=== PATIENT | male | born 1970 | race Caucasian/White ===

== ENCOUNTER 2024-02-27 07:51 | Outpatient (CLI) | payer BC, SELFPAY ==
--- NOTE | 2024-03-14 21:34 | WPDSLEEPSTUD ---
Sleep Study Date of Study: 02/27/24 Ordering Provider: Lake Fair MD Interpreting Physician: Christina Bliss MD Sleep Study Type: Split Polysomnogram Height: 1.78 m Weight: 108.862 kg Body Mass Index: 34.4 Neck Circumference (inches): 18 [place]: 1 Reason for Sleep Study Erythrocytosis, H/H elevated 19.1/56.6, testing to determine if sleep apnea is contributing Sleep History Deon Alvarez is a 53-year-old man with hypertension, hyperlipidemia, seasonal allergies and pre-diabetes developed increased hemoglobin and hematocrit. He does not awaken at night with shortness of breath or with heartburn symptoms. He occasionally snores, rarely snores loudly enough that others complain. He rarely has difficulty sleeping when he has a cold. He does not wake up gasping for breath during the night, does not have breathing problems at night reported to him by others. He does not sweat excessively at night or notice his heart pounding or beating irregularly at night. He does not fall asleep during the day, does not fall asleep involuntarily or while driving. He does not have loss of muscle tone with strong emotion. He does not have daytime difficulties due to excessive sleepiness. He is a software qa system specialist. He does not feel paralyzed on waking or falling asleep. He does not have vivid dreamlike scenes upon awakening or falling asleep. He does not feel afraid to go to sleep. He does not have nightmares. He does not have dream recall. He denies racing thoughts. He does not feel sad or depressed. He occasionally feels anxious. He rarely notices parts of his body jerking, rarely kicks at night. He he does not have crawling or aching feelings in his legs. He does not have leg pain at night. He does not have morning jaw pain nor does he grind his teeth at night. He is not bothered by pain during the day, is not awakened by pain at night. He does not wake up feeling stiff in the morning with sore achy muscles. He does not wake up with pain in the neck and spine. Normal bedtime is 9:30 p.m., falling asleep within 30 minutes after reading. He wakes once at most to go to the bathroom. He is able to return to sleep within 5 minutes. His normal wake up time is 6:00 a.m.. On weekends, bedtime is 10:00 p.m. and his wake time is 7:00 a.m.. He estimates getting between 7 and 8 hours of sleep at night. He does not take naps. He feels adequate upon awakening, feels better tn the afternoons and evenings compared to mornings. Habits: Tobacco: never smoker Caffeine: 1 can per day Alcohol: none Recreational substances: none [facility] Past Medical History Medical History Adult BMI 37.0-37.9 kg/sq m Benign essential hypertension BMI 34.0-34.9,adult BMI 35.0-35.9,adult BMI 36.0-36.9,adult BMI 38.0-38.9,adult Elevated homocysteine Encounter for preventive health examination Encounter for routine adult health examination with abnormal findings Encounter for routine adult health examination without abnormal findings Encounter to establish care Epidermal inclusion cyst Follow up Hyperlipidemia On terminal operations supervisor drug therapy Other abnormal glucose Pre-diabetes Prostate cancer screening Seasonal allergies Subcutaneous mass Testosterone deficiency Family History Family History Grandparent Hypertension Family history of lung cancer Family history of coronary artery disease Father Family history of Parkinson's disease Hypertension Mother Patient's mother is in good health Sibling Alive and well Social History Social History Smoking status: Never smoker Second hand tobacco smoke exposure: No Alcohol intake: never Lack of Transportation: No Lack of Food: Never True Current Housing: I Have Housing Concerned About Future Housing: No
[2024-03-14 21:42] VITALS: BMI 34.4
== END 2024-02-28 07:16 | disposition home or self-care (01) ==
LOC: ANHCSM 07:53
PROVIDERS: PCP Internal Medicine; Visit Provider Internal Medicine
DX: G47.33 Obstructive sleep apnea (adult) (pediatric) (principal); I10 Essential (primary) hypertension
CPT/HCPCS: 95811

== ENCOUNTER 2024-10-13 15:31 | Outpatient (CLI) | payer BC, SELFPAY ==
--- NOTE | ~2024-10-13 | CT_ITS ---
CT Scan of the Chest without Contrast: Clinical Indication: Pulmonary nodule Technique: Contiguous sections were acquired throughout the chest without intravenous contrast. Dose reduction technique was used on this scan by utilizing automated exposure control and iterative recon struction technique. The dose-length product (DLP) was 411.00 mGy-cm. Findings: There is no evidence of any significant mediastinal, hilar or axillary lymphadenopathy. The mediastin al soft tissues appear normal. There is no evidence of pleural or pericardial effusion. The lungs are clear. No pulmonary nodules or infiltrates are noted. Images through the upper abdomen reveal small calcified gallstone. Impression: Clear lungs. Cholelithiasis. Reviewed, dictated and finalized at location . Impression: Clear lungs. Cholelithiasis.
--- OUTSIDE RECORDS SUMMARY | 2024-10-13 17:40 | XMS_ITS | Continuity of Care Document ---
Author Organization [facility] Address [address] [place] [address] [place] [address] Phone Care Team Providers Care Pattern And Chain Maker Name Role Phone Bird OD, Marcelino Unavailable Unavailable Procedures Procedure Date Eye Exam & Treatment Refraction Eye Exam & Treatment Refraction Advance Directives Directive Yes / No Effective Date File Name No Information Encounters Encounter Description Practice Location Reason(s) For Visit Diagnoses Date Provider Providers Copied on Encounter [facility], [address] [place] [address] [address], [place], [place], [id number], tel:[phone] [facility] No Information 5-201 0 Bird OD Marcelino. [address], [place], [place], [facility], . tel:[phone] [facility], [address] [place] [address] [address], [place], [place], [id number], tel:[phone] [facility] No Information 3-200 7 Wright Chasity. [address], [place], [place], [facility], . tel:[phone] Family History Family Member Type Diagnosis Age At Onset No Information Payers Payer name Insurance type Covered democrat ID Authoriza tion(s) [facility] [id number] Social History Type Description Quantity Date Captured [...]
--- OUTSIDE RECORDS SUMMARY | 2024-10-13 17:40 | XMS_ITS | Clinical Summary ---
Author Organization [facility] Address [address] [place] [address] Care Team Providers Care Document Coordinator Name Role Phone Lake Fair MD Primary Care Provider [phone] Source Comments [facility],non-owned Affiliates and Associated Physician Practices is amultiple site organization consisting of ambulatory clinics and hospital sitesin [place], [place], [place] and [place]. This disclosure is being madepursuant to the Care Everywhere program and may not contain all information available regarding this patient. Last updated 18.[facility] [employer] Allergies No known active allergies Immunizations Immunization Administration Dates Next Due INFLUENZA VACCINE, QUADR. 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 Gender Identity Not on file Sexual Orientation Not on file Plan of Treatment Health Maintenance Due Date Last Done Comments COLOGUARD (AGES 45-75) - COL ON CA SCREENING 1972 COLON MONITORING 1972 COLONOSCOPY - COLON CA SCREENING 1972 CT COLONOGRAPHY - COLON CA SCREENING 1972 Colorectal Cancer Screening 1972 FIT - COLON CA SCREENING 1972 FLEX SIG - COLON CA SCREENING 1972 LIPID TESTING 1972 HIV SCREENING 1987 HEPATITIS C SCREENING 07/04/1990 DTAP/TDAP/TD VACCINES (1 - Tdap) 1991 HEPATITIS B VACCINE (1 of 3 - 19+ 3-dose series) 1991 PNEUMOCOCCAL VACCINE 50+ (1 of 1 - PCV) 2022 ZOSTER VACCINE (1 of 2) 2022 COVID-19 VACCINE (1 - 2023-2 5 season) 2024 DEPRESSION SCREENING 06/18/2024 INFLUENZA VACCINE (Season Ended) 2025 03/31/20 19 HIB VACCINE Aged Out No longer eligi ble based on patient's age to complete this topic HPV VACCINE Aged Out No longer eligi ble based on patient's age to complete this topic MENINGOCOCCAL (Group B) VACC INE SHARED DECISION-MAKING Aged Out No longer eligibl e based on patient's age to complete this topic MENINGOCOCCAL GROUPS A/C/Y/W VACCINE Aged Out No longer eligible b ased on patient's age to complete this [place] [address] [facility] Member Subscriber Plan / Payer (Ef fective 2018-Present) Name:Jacquelyn Rojas Relation to Subscriber:Self Name:JACQUELYN ROJAS Payer ID:[id number] (NAIC) Type:HMO Address: [place] [id number] [facility] Care Teams Document Coordinator Relationship Specialty Start Date End Date Lake Fair MD [address] [place] [address] PCP - General 09/06/18
--- OUTSIDE RECORDS SUMMARY | 2024-10-13 17:40 | XMS_ITS | Clinical Summary ---
Author Organization [facility] Address [address] [place] [address] Care Team Providers Care Highway Traffic Control Technician Name Role Phone Lake Fair MD Primary Care Provider [phone] Immunizations Immunization Administration Dates Next Due PFIZER COVID-19 (ORIGINAL FO RMULATION, PURPLE CAP) mRNA, LNP-S, PF, 30 MCG/0.3 ML DOSE 11/08/2020,10/18/2020 Social History Tobacco Use Types Packs/Day Years Used Date Smoking Tobacco: Never Assessed Sex and Gender Information Value Date Recorded Sex Assigned at Male 03/24/2024 7:47 AM CDT Legal Sex Male 8:22 AM CDT Gender Identity Male 03/24/2024 7:47 AM CDT Sexual Orientation Not on file Plan of Treatment Health Maintenance Due Date Last Done Comments Colorectal Cancer Screening Colonoscopy (10 Years) 1972 Annual Physical 1975 Hepatitis C 1990 DTaP, Tdap and Td Vaccines ( 1 - Tdap) 1991 Hepatitis B Vaccines (1 of 3 - 19+ 3-dose series) 1991 Pneumococcal Vaccine: 50+ Years (1 of 1 - PCV) 2022 Zoster Vaccines (1 of 2) 2022 COVID-19 Vaccine ( - 2023-2 5 season) 2024 11/08/2020, 10/18/2020 Meningococcal B Vaccine Aged Out No l onger eligible based on patient's age to complete this topic Meningococcal Vaccine Aged Out No marina mary eligible based on patient's age to complete this topic RSV Immunizations Under 20 Months Aged Out No longer eligible b ased on patient's age to complete this topic Insurance [facility] Care Teams Highway Traffic Control Technician Relationship Specialty Start Date End Date Lake Fair MD [address] - [facility] [address] [place] [address] PCP - General INTERNAL MEDICINE 02/07/23
== END 2024-10-13 15:32 | disposition home or self-care (01) ==
PROVIDERS: PCP Internal Medicine; Visit Provider Internal Medicine
DX: R91.1 Solitary pulmonary nodule (principal); K80.20 Calculus of gallbladder without cholecystitis without obstruction
CPT/HCPCS: 71250

== ENCOUNTER 2025-01-30 09:17 | Outpatient (CLI) | payer BC, SELFPAY ==
--- OUTSIDE RECORDS SUMMARY | 2025-01-30 09:28 | XMS_ITS | Clinical Summary ---
Author Organization [facility] Address [address] [address] Care Team Providers Care Juvenile Court Judge Name Role Phone Unavailable Primary Care Provider Unavailabl e Encounters Date Type Department Care Team Description 01/20/2025 Orders Only [facility] Oncology and Hematology - Jose [address] [place] [address] Kyle Zambrano MD 01/14/2025 Orders Only [facility] Oncology and Hematology - [address] [place] [address] Kyle Zambrano MD 01/08/2025 Orders Only [facility] Oncology and Hematology - [address] [place] [address] Kyle Zambrano MD from Last 3 Months Social History Tobacco Use Types Packs/Day Years Used Date Smoking Tobacco: Never Assessed Sex and Gender Information Value Date Recorded Sex Assigned at Not on file Legal Sex Male 3:07 PM CDT Gender Identity Not on file Sexual Orientation Not on file Plan of Treatment Upcoming Encounters Date Type Department Care Team (Late st Contact Info) Description 04/14/2025 10:30 AM CDT Office Visit [facility] Oncology and Hematology - [address] [place] [address] Kyle Zambrano MD [address] [place] [address] Health Maintenance Due Date Last Done Comments DTAP/TDAP/TD VACCINES (1 - Tdap) 1991 HEPATITIS B VACCINES (1 of 3 - 19+ 3-dose series) 06/19 COLORECTAL SCREENING 2017 Colorectal Cancer Screening 2017 FIT-DNA Q 3 years 2017 FIT/FOBT Q 1 year 2017 Flex Sig/CT Colonography Q 5 years 2017 ZOSTER VACCINE (1 of 2) 2022 INFLUENZA VACCINE (#1) 2025 Procedures Procedure Name Priority Date/Time Associated Diagnosis Comments CBC WITH AUTODIFFERENTIAL Routine 2024 3:54 PM CDT JAK2 EXON 12 MUTATION ANALYSIS Routine 01/05/2025 11:25 AM CDT CBC WITH DIFFERENTIAL Routine 11/21/2024 12:34 PM CDT from Last 3 Months Results * CBC WITH AUTODIFFERENTIAL (01/20/2025 3:54 PM CDT) Blood us Kyle Zambrano MD HEMATOLOGY ORDERABLES Final Res ult * JAK2 EXON 12 MUTATION ANALYSIS (01/05/2025 11:25 AM CDT) Blood us Kyle Zambrano MD HEMATOLOGY ORDERABLES COM Final Result * CBC WITH DIFFERENTIAL (11/21/2024 12:34 PM CDT) Blood us Kyle Zambrano MD HEMATOLOGY ORDERABLES Final Res ult from Last 3 Months Insurance [facility] BLUE ACCESS CHOICE
--- OUTSIDE RECORDS SUMMARY | 2025-01-30 09:28 | XMS_ITS | Clinical Summary ---
Author Organization [facility] Address [address] [place] [address] Care Team Providers Care Associate Professor Name Role Phone Lake Fair MD Primary Care Provider [phone] Source Comments [facility],non-owned Affiliates and Associated Physician Practices is amultiple site organization consisting of ambulatory clinics and hospital sitesin [place], [place], [place] and [place]. This disclosure is being madepursuant to the Care Everywhere program and may not contain all information available regarding this patient. Last updated 18.[facility] Allergies No known active allergies Immunizations Immunization Administration Dates Next Due INFLUENZA VACCINE, QUADR. 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 [place] [address] [place] [address] [facility] Care Teams Associate Professor Relationship Specialty Start Date End Date Lake Fair MD [address] [place] [address] PCP - General 09/06/18
--- NOTE | 2025-01-30 09:37 | ECHO_ITS ---
Patient Info Name: Deon Alvarez Age: 54 years : 1970 Gender: Male Ht: 70 in Wt: 245 lbs BSA: 2.38 m2 HR: 76 bpm BP: 134 / 95 mmHg Technical Quality: Good Exam Date: 01/30/2025 10:05 AM Patient Status: O Admit Date: 01/30/2025 Exam Type: CA echo doppler color flow Complete two-dimensional, color flow and Doppler transthoracic echocardiogram is performed. Hoisting Engineer Pile Driving: Erika Roa Attending Provider: Lake Fair MD Summary 1. Complete two-dimensional, color flow and Doppler transthoracic echocardiogram is performed. 2. Left ventricular chamber dimension is normal. 3. Left ventricular systolic function is normal, estimated at 60-65. 4. The left ventricular diastolic function is grade I diastolic dysfunction. 5. E/e' 5 is not elevated. 6. Left atrial chamber dimension is mildly enlarged. Left Ventricle E/e' 5 is not elevated. Left ventricular chamber dimension is normal. Left ventricular systolic function is normal, estimated at 60-65. The left ventricular diastolic function is grade I diastolic dysfunction. Right Ventricle Right ventricular chamber dimension is normal. Right ventricular systolic function is normal. Left Atria Left atrial chamber dimension is mildly enlarged. Right Atria Right atrial chamber dimension is normal. Aortic Valve The aortic valve is trileaflet. There is no aortic valve stenosis. There is no aortic valve regurgitation. Pulmonic Valve There is no pulmonic regurgitation. Mitral Valve There is no mitral valve stenosis. There is no mitral valve regurgitation. Tricuspid Valve There is no tricuspid valve regurgitation. Pericardium/Pleural There is no pericardial effusion. Inferior Vena Cava Normal inferior vena cava with >50% collapse upon inspiration consistent with normal right atrial pressure, 5 mmHg. Aorta The aortic root size at the sinus of Valsalva is normal. Left Ventricular Outflow Tract Name Value Normal LVOT 2D LVOT Diameter 2.0 cm LVOT Doppler LVOT Peak Velocity 119 cm/s LVOT Peak Gradient 6 mmHg LVOT Mean Gradient 3 mmHg LVOT VTI 24 cm LVOT Stroke Volume 77 ml LVOT CO 5.3 l/min LVOT CI 2.2 l/min/m2 Pulmonic Valve Name Value Normal RVOT Doppler RVOT Peak Velocity 78 cm/s RVOT Peak Gradient 2 mmHg PV Doppler PV Peak Velocity 97 cm/s PV Peak Gradient 4 mmHg Mitral Valve Name Value Normal MV Diastolic Function MV E Peak Velocity 66 cm/s MV A Peak Velocity 68 cm/s MV E/A 1.0 MV Decel Time (PW) 180 ms MV Annular TDI MV E/e' (Septal) 6.3 MV E/e' (Lateral) 4.4 MV E/e' (Average) 5.4 Tricuspid Valve Name Value Normal Estimated PAP/RSVP RA Pressure 5 mmHg <=5 Aortic Valve Name Value Normal AV Doppler AV Peak Velocity 133 cm/s AV Peak Gradient 7 mmHg AV Area (Cont Eq Solomon) 2.8 cm2 AV DI (Solomon) 0.89 AV Regurgitation 2D LVOT Area 3.2 cm2 Ventricles Name Value Normal LV Dimensions 2D/MM IVS Diastolic Thickness (2D) 1.3 cm 0.6-1.0 LVID Diastole (2D) 5.1 cm 4.2-5.8 LVIW Diastolic Thickness (2D) 0.9 cm 0.6-1.0 LVID Systole (2D) 3.1 cm 2.5-4.0 LVOT Diameter 2.0 cm LV Mass (2D Cubed) 209.08 g 88.00-224.00 LV Mass Index (2D Cubed) 88 g/m2 49-115 Relative Wall Thickness (2D) 0.35 <=0.42 LV Fractional Shortening/Ejection Fraction 2D/MM LV Fractional Shortening (2D) 39 % 25-43 LV EF (2D Teichholz) 69 % LV Diastolic Volume (4C MOD) 104 ml LV EF (4C MOD) 63 % LV Diastolic Volume (2C MOD) 101 ml LV EF (2C MOD) 65 % LV Diastolic Volume (BP MOD) 103 ml 62-150 LV Diastolic Volume Index (BP MOD) 43 ml/m2 34-74 LV Systolic Volume (BP MOD) 38 ml 21-61 LV Systolic Volume Index (BP MOD) 16 ml/m2 11-31 LV EF (BP MOD) 63 % 52-72 LV Diastolic Length (4C) 8.4 cm LV Systolic Length (4C) 7.1 cm LV Stroke Volume (4C MOD) 65 ml Atria Name Value Normal LA Dimensions LA Volume (4C A-L) 40 ml LA Volume (BP A-L) 36 ml RA Dimensions RA Systolic Major Haines Length (4C) 5.1 cm 2.1-2.7 RA Area (4C) 11.9 cm2 <=18.0 Report Signatures
== END 2025-01-30 09:18 | disposition home or self-care (01) ==
PROVIDERS: PCP Internal Medicine; Visit Provider Internal Medicine
DX: D75.1 Secondary polycythemia (principal); I10 Essential (primary) hypertension; E78.2 Mixed hyperlipidemia; G47.33 Obstructive sleep apnea (adult) (pediatric)
CPT/HCPCS: 93306

== ENCOUNTER 2025-02-17 12:42 | Outpatient (CLI) | payer BC, SELFPAY ==
--- OUTSIDE RECORDS SUMMARY | 2009-07-02 03:00 | XMS_ITS | Continuity of Care Document ---
Author Organization [facility] Address [address] [place] [address] [place] [address] Phone Care Team Providers Care Chief Controller Name Role Phone Bird OD, Marcelino Unavailable Unavailable Procedures Procedure Date Eye Exam & Treatment Refraction Eye Exam & Treatment Refraction Advance Directives Directive Yes / No Effective Date File Name No Information Encounters Encounter Description Practice Location Reason(s) For Visit Diagnoses Date Provider Providers Copied on Encounter [facility], [address] [place] [address] [address], [place], [place], [id number], tel:[phone] [facility] No Information 5-201 0 Bird OD Marcelino. [address], [place], [place], [facility], . tel:[phone] [facility], [address] [place] [address] [address], [place], [place], [id number], tel:[phone] [facility] No Information 3-200 7 Wright Chasity. [address], [place], [place], [facility], . tel:[phone] Family History Family Member Type Diagnosis Age At Onset No Information Payers Payer name Insurance type Covered green party ID Authoriza tion(s) [facility] [id number] Social History Type Description Quantity Date Captured Comments Sex Male Smoking Status No Information Chief Complaint And Reason For Visit No Information Reason For Referral Reason For Referral No Information History Of Present Illness Encounter Date Complaint History Of Prese nt Illness No Information Functional Status Date Functional Assessmen t No Information Instructions Date Instruction Additional Infor mation No Information Assessments Type Assessment Date No Information Patient Care Teams Name Effective Dates (start - stop) Status Members No Information
--- OUTSIDE RECORDS SUMMARY | 2025-02-17 12:50 | XMS_ITS | Clinical Summary ---
Author Organization [facility] Address [address] [place] [address] Care Team Providers Care Career Development Manager Name Role Phone Lake Fair MD Primary Care Provider [phone] Source Comments [facility],non-owned Affiliates and Associated Physician Practices is amultiple site organization consisting of ambulatory clinics and hospital sitesin [place], [place], [place] and [place]. This disclosure is being madepursuant to the Care Everywhere program and may not contain all information available regarding this patient. Last updated 18.[facility] Allergies No known active allergies Immunizations Immunization Administration Dates Next Due INFLUENZA VACCINE, QUADR. 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
--- OUTSIDE RECORDS SUMMARY | 2025-02-17 12:50 | XMS_ITS | Clinical Summary ---
Author Organization [facility] Address [address] [place] [address] Care Team Providers Care Manufacturing Maintenance Manager Name Role Phone Lake Tovar MD Primary Care Provider [phone] Encounters Date Type Department Care Team Description 02/06/2025 12:10 PM CDT - 02/06/2025 11:59 PM CDT Hospital Encounter [facility] [address] [place] [address] Lake Tovar MD Discharge Disposition: Home or Self Care (Routine Discharge) 02/06/2025 Travel from Last 3 Months Immunizations Immunization Administration Dates Next Due PFIZER [...] Vaccines (1 of 2) 2022 COVID-19 Vaccine (3 - 2024-2 6 season) 2025 11/08/2020, 10/18/2020 Meningococcal B Vaccine Aged Out No l onger eligible based on patient's age to complete this topic Meningococcal Vaccine Aged Out No marina mary eligible based on patient's age to complete this topic RSV Immunizations Under 20 Months Aged Out No longer eligible b ased on patient's age to complete this topic Procedures Procedure Name Priority Date/Time Associated Diagnosis Comments US RETROPERITONEAL COMP Routine 02/07/20 2:14 PM CDT Essential (primary) hypertension Secondary polycythemia from Last 3 Months Results * US RETROPERITONEAL COMP (02/06/2025 2:14 PM CDT) Anatomical Region Laterality Modality Abdomen Ultrasound 02/13/2025 1:53 PM CDT Impressions 02/13/2025 1:58 PM CDT IMPRESSION: Suspected RIGHT nephrolithiasis. Simple cysts of the RIGHT kidney. The liver echotexture is coarsened. This is commonly associated with steatosis but can be seen with other disorders. Referred By: LAKE TOVAR Interpreted By: Rahul Yung MD, 02/13/2025 1:53 PM Narrative 02/13/2025 1:58 PM CDT [facility] [address] [place], [place] [address] Procedure(s): US RETROPERITONEAL COMP Date of service: 02/06/2025 1:05 PM Provided clinical information: 54 years, Male, Sencondary polycythemia Procedure and materials: Grayscale and color Doppler images of the retroperitoneum were obtained. Comparison studies: None. Findings: Right kidney measures 11.9 x 5.9 x 5.5 cm. No hydronephrosis. About the inferior pole of the RIGHT kidney there is a simple cyst measuring 1.7 cm maximally. About the upper pole of the RIGHT kidney there is a simple cyst is present measuring 1.3 cm maximally. Subadjacent to this is a small hyperechoic reflector measuring 4 mm. This is suggestive of a small calculus. The LEFT kidney measures 12.2 x 5.9 x 4.3 cm. No hydronephrosis is present. Urinary bladder is unremarkable. Bilateral ureteral jets are present. Procedure Note Rahul Yung MD - 02/13/[address] [address] Procedure(s): US RETROPERITONEAL COMP Date of service: 02/06/2025 1:05 PM Provided clinical information: 54 years, Male, Sencondary polycythemia Procedure and materials: Grayscale and color Doppler images of theretroperitoneum were obtained. Comparison studies: None. Findings: Right kidney measures 11.9 x 5.9 x 5.5 cm. No hydronephrosis. About the inferior pole of the RIGHT kidney there is a simple cystmeasuring 1.7 cm maximally. About the upper pole of the RIGHT kidney there is a simple cyst is presentmeasuring 1.3 cm maximally. Subadjacent to this is a small hyperechoicreflector measuring 4 mm. This is suggestive of a small calculus. The LEFT kidney measures 12.2 x 5.9 x 4.3 cm. No hydronephrosis ispresent. Urinary bladder is unremarkable. Bilateral ureteral jets are present. IMPRESSION: Suspected RIGHT nephrolithiasis. Simple cysts of the RIGHT kidney. The liver echotexture is coarsened. This is commonly associated withsteatosis but can be seen with other disorders. Referred By: LAKE TOVAR Interpreted By: Rahul Yung MD, 02/13/2025 1:53 PM Lake Tovar MD ULTRASOUND Final Result from Last 3 Months Insurance [facility] Care Teams Manufacturing Maintenance Manager Relationship Specialty Start Date End Date Lake Tovar MD [address] [place] [address] PCP - General INTERNAL MEDICINE 02/07/23
--- OUTSIDE RECORDS SUMMARY | 2025-02-17 12:50 | XMS_ITS | Clinical Summary ---
Author Organization [facility] Address [address] [address] Care Team Providers Care Mail Room Clerk Name Role Phone Unavailable Primary Care Provider Unavailabl e Encounters Date Type Department Care Team Description 01/20/2025 Orders Only [facility] Oncology and Hematology - [place] [address] [place] [address] Kyle Zambrano MD 01/14/2025 Orders Only [facility] Oncology and Hematology - [place] [address] [place] [address] Kyle Zambrano MD 01/08/2025 Orders Only [facility] Oncology and Hematology - [place] [address] [place] [address] Kyle Zambrano MD from Last [...] Description 04/14/2025 10:30 AM CDT Office Visit [facility] Oncology and Hematology - [place] [address] [place] [address] Kyle Zambrano MD [address] [place] [address] Health Maintenance Due Date Last [...] Res ult from Last 3 Months Insurance [facility] BL[employer] ACCESS CHOICE
[2025-02-18 07:08] LABS: GGT 16 IU/L (0-65)
== END 2025-02-17 12:43 | disposition home or self-care (01) ==
LOC: ANHLAB 12:44
PROVIDERS: PCP Internal Medicine; Visit Provider Internal Medicine
DX: E88.89 Other specified metabolic disorders (principal)
CPT/HCPCS: 82977